=== PATIENT | male | born 1990 | race Caucasian/White ===

== ENCOUNTER 2017-02-23 23:34 | Emergency (ER) | payer OTHER ==
[~2017-02-23] VITALS: Ht 182.9 cm; Wt 130.2 kg
[~2017-02-23 23:34] MED LIST: AUGMENTIN 875875 MG PO; BLOOD PRESSURE; CIPRO HC OTIC S10 ML OT; CLARITIN10 M2; CLARITIN10 MG; CYCLOBENZAPRINE5 MG PO; FIORICET 50-321 EACH PO; FLEXERIL PO; GABAPENTIN100 MG; IBUPROFEN 600600 M1 PO; IBUPROFEN 800800 M1 PO; IBUPROFEN 800800 MG PO; IMITREX 50 MG T50 MG; LORTABELXR PO; OMEPRAZOLE 20 M20 M1; PROPRANOLOL 1010 M1; RANITIDINE; TESSALON PERLE100 MG PO; TESSALON200 MG PO; TIROSINT75 MCG; ULTRAM 50MG TAB50 MG PO; ZPAK PO; [UNRECOGNIZED DRUG - OTHER]
[2017-02-23 23:42] VITALS: BP 164/129
[2017-02-23] MEDS ORDERED: ZPAK PO (23:51)
[2017-02-23] MEDS ORDERED: PREDNISONE 20 M20 M1 PO (23:51)
== END 2017-02-24 | disposition home or self-care (01) ==
LOC: M.ERS 23:34
DX: J06.9 Acute upper respiratory infection, unspecified (principal); I10 Essential (primary) hypertension; K21.9 Gastro-esophageal reflux disease without esophagitis; G43.909 Migraine, unspecified, not intractable, without status migrainosus; Z86.61 Personal history of infections of the central nervous system; Z86.69 Personal history of other diseases of the nervous system and sense organs; Z98.890 Other specified postprocedural states

== ENCOUNTER 2020-08-14 08:47 | Emergency (ER) | payer OTHER ==
[~2020-08-14] VITALS: Ht 182.9 cm; Wt 147.4 kg
[~2020-08-14 08:47] MED LIST changes: +PREDNISONE 20 M20 M1 PO
[2020-08-14] MEDS ORDERED: ZOFRAN ODT4 MG DISSOLVE (10:38)
[2020-08-14] MEDS ORDERED: DEXAMETHASONE 44 M1 PO (10:38)
[2020-08-14] MEDS ORDERED: ZPAK PO (10:38)
[2020-08-14 11:00] VITALS: BP 159/85
== END 2020-08-14 11:00 | disposition home or self-care (01) ==
LOC: M.ERS 08:47
DX: U07.1 COVID-19 (principal); K21.9 Gastro-esophageal reflux disease without esophagitis; I10 Essential (primary) hypertension; G43.909 Migraine, unspecified, not intractable, without status migrainosus

== ENCOUNTER 2020-10-20 23:41 | Emergency (ER) | payer OTHER ==
[~2020-10-20] VITALS: Ht 182.9 cm; Wt 158.8 kg
[~2020-10-20 23:41] MED LIST changes: +DEXAMETHASONE 44 M1 PO; +ZOFRAN ODT4 MG DISSOLVE
[2020-10-20] MEDS ORDERED: EMGALITY120 MG/1 M SUBQ (23:52)
[2020-10-21 01:15] VITALS: BP 129/83
== END 2020-10-21 01:15 | disposition home or self-care (01) ==
LOC: M.ERS 23:41
DX: G43.909 Migraine, unspecified, not intractable, without status migrainosus (principal); I10 Essential (primary) hypertension; K21.9 Gastro-esophageal reflux disease without esophagitis; Z79.899 Other long term (current) drug therapy

== ENCOUNTER 2020-10-29 08:31 | Emergency (ER) | payer OTHER ==
[~2020-10-29] VITALS: Ht 182.9 cm; Wt 158.8 kg
[~2020-10-29 08:31] MED LIST changes: +EMGALITY120 MG/1 M SUBQ
[2020-10-29 09:51] VITALS: BP 108/69
== END 2020-10-29 09:52 | disposition home or self-care (01) ==
LOC: M.ERS 08:31
DX: G43.909 Migraine, unspecified, not intractable, without status migrainosus (principal); I10 Essential (primary) hypertension; K21.9 Gastro-esophageal reflux disease without esophagitis; Z79.899 Other long term (current) drug therapy

== ENCOUNTER 2020-12-10 23:11 | Emergency (ER) | payer OTHER ==
[~2020-12-10] VITALS: Ht 182.9 cm; Wt 145.2 kg
[2020-12-11 00:04] VITALS: BP 122/64
== END 2020-12-11 00:04 | disposition home or self-care (01) ==
LOC: M.ERS 23:11
DX: G43.909 Migraine, unspecified, not intractable, without status migrainosus (principal); I10 Essential (primary) hypertension; K21.9 Gastro-esophageal reflux disease without esophagitis; Z79.899 Other long term (current) drug therapy